=== PATIENT | male | born 1980 | race Caucasian/White ===

== ENCOUNTER 2017-01-23 11:25 | Emergency (ER) | payer BC, OTHER ==
[~2017-01-23] VITALS: Ht 182.9 cm; Wt 77.0 kg
[2017-01-23 11:26] VITALS: BP 111/78; PULSE 90; RESP 13; TEMP 97.6; O2SAT 97
--- NOTE | 2017-01-23 11:36 | PD ---
Physical Exam Time Seen by Provider: 11:30 Narrative 36-year-old male presents emergency Department with complaint of suicidal thoughts times one month. Instructed in with depression for about 2 months. Denies current plan, says he just has random thoughts. Says he doesn't really want to kill himself he just would like to , such as he wishes a car would hit him and kill him. Denies homicidal ideations. Denies auditory or visual hallucinations. Patient seen in triage. VS reviewed. Patient awaiting bed placement. Data Data Last Documented VS Vital Signs Date Time Temp Pulse Resp B/P (MAP) Pulse Ox O2 Delivery O2 Flow Rate FiO2 01/23/17 11:26 97.6 90 13 111/78 (89) 97 Orders Orders Complete Blood Count With Diff (01/23/17 11:36) Basic Metabolic Panel (Bmp) (01/23/17 11:36) Psych Screen (01/23/17 11:36) Alcohol (Ethanol) (01/23/17 11:36) Tylenol (Acetaminophen) (01/23/17 11:36) Salicylates (Aspirin) (01/23/17 11:36) Comprehensive Metabolic Panel (01/23/17 11:36) Drug Screen, Random Urine (01/23/17 11:36) MDM Supervised Visit with ELSY: Kirsten Castanon Jan 23, 2017 11:36
[2017-01-23] MEDS ORDERED: XANA1TAB2 PO (11:59)
[2017-01-23] MEDS ORDERED: SERO400T PO (11:59)
[2017-01-23] MEDS ORDERED: DULO1CAP PO (11:59)
[2017-01-23] MEDS ORDERED: XANA3TAB PO (11:59)
[2017-01-23] MEDS ORDERED: MELA5TAB15 PO (12:01)
[2017-01-23] MEDS ORDERED: MAGN400T2 PO (12:01)
[2017-01-23] MEDS ORDERED: probiotic (12:01)
[2017-01-23] MEDS ORDERED: [UNRECOGNIZED DRUG - OTHER] (12:01)
[2017-01-23 12:20] LABS: AUTOMATED NEUTROPHIL # 3.3 TH/MM3 (1.8-7.7); BASOPHIL # 0.1 TH/MM3 (0-0.2); EOSINOPHIL # 0.1 TH/MM3 (0-0.4); EOSINOPHIL % 1.3 % (0.0-4.0); HEMATOCRIT 43.8 % (39.0-51.0); HEMO FLAGS DIFF FINAL; LYMPH % 32.3 % (9.0-44.0); LYMPHOCYTE # 1.9 TH/MM3 (1.0-4.8); MEAN CELL VOLUME 87.6 FL (80.0-100.0); MEAN CORPUSCULAR HEMOGLOBIN 29.9 PG (27.0-34.0); MEAN CORPUSCULAR HGB CONC 34.1 % (32.0-36.0); MONO % 7.9 % (0.0-8.0); NEUT % 56.5 % (16.0-70.0); PLATELET COUNT 330 TH/MM3 (150-450); RED CELL DISTRIBUTION WIDTH 12.4 % (11.6-17.2); WHITE BLOOD COUNT 5.8 TH/MM3 (4.0-11.0)
--- NOTE | 2017-01-23 12:37 | PD ---
HPI Chief Complaint: Psychiatric Symptoms Time Seen by Provider: 12:10 Travel History International Travel<30 days: No Contact w/Intl Traveler<30days: No Traveled to known affect area: No History of Present Illness HPI 36-year-old male patient presents emergency department for evaluation of depression and suicidal ideation. Patient has history of bipolar and has been battling this bout of depression since October. 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 Patient has been following up with his psychiatric physician regularly. Patient states his psychiatrist was recently discussing inpatient treatment with him. Patient states he has been taking his medication as prescribed. Patient denies any homicidal ideations. Patient denies any auditory or visual hallucinations. Patient states he has battled depression in the past but feels this is the worst his depression has ever been. Patient states he would never kill himself because of his christian but hopes he attempted by a car or something happens to end his life. Patient does not have a plan to end his life at this time. Patient denies any alcohol or drug abuse. Patient complains of constipation related to his Xanax. Patient has seen his primary care physician regarding the constipation. Patient had x-rays earlier this month to rule out any obstruction. Patient has been going to colonics treatment to help regulate his bowel movements. Patient's last treatment was on Thursday and his last bowel movement was on Thursday. On physical exam the abdomen is not distended, nontender and soft. Bowel sounds are active in all 4 quadrants. Patient denies any other physiological symptoms. PFSH Past Medical History Bipolar Disorder: Yes Anxiety: Yes Depression: Yes Past Surgical History Oral Surgery: Yes Social History Alcohol Use: Yes (social not since November) Tobacco Use: No Substance Use: No Allergies-Medications (Allergen,Severity, Reaction): Coded Allergies: No Known Allergies (Verified Allergy, Unknown, 01/23/17) Reported Meds & Prescriptions Reported Meds & Active Scripts Active Reported [prebiotics] [probiotic] Magnesium Oxide 400 Mg Tab 400 Mg PO DIRECTED Melatonin 5 Mg Tab 5 Mg PO HS Xanax Xr 24 HR (Alprazolam) 3 Mg Tab 3 Mg PO HS Take tablet intact, preferably in the morning. Xanax (Alprazolam) 1 Mg Tab 1 Mg PO Q6H PRN Seroquel (Quetiapine Fumarate) 400 Mg Tab 600 Mg PO HS Duloxetine DR (Duloxetine HCl) 20 Mg Capdr 20 Mg PO DAILY Review of Systems Except as stated in HPI: all other systems reviewed are Neg Physical Exam Narrative GENERAL: Well-nourished well-developed 36-year-old male patient in no acute distress SKIN: Focused skin assessment warm/dry. HEAD: Atraumatic. Normocephalic. EYES: Pupils equal and round. No scleral icterus. No injection or drainage. ENT: No nasal bleeding or discharge. Mucous membranes pink and moist. NECK: Trachea midline. No JVD. CARDIOVASCULAR: Regular rate and rhythm. No murmur appreciated. RESPIRATORY: No accessory muscle use. Clear to auscultation. Breath sounds equal bilaterally. GASTROINTESTINAL: Abdomen soft, non-tender, nondistended. Hepatic and splenic margins not palpable. MUSCULOSKELETAL: No obvious deformities. No clubbing. No cyanosis. No edema. NEUROLOGICAL: Awake and alert. No obvious cranial nerve deficits. Motor grossly within normal limits. Normal speech. PSYCHIATRIC: Depressed mood and affect; insight and judgment normal. Data Data Last Documented VS Vital Signs Date Time Temp Pulse Resp B/P (MAP) Pulse Ox O2 Delivery O2 Flow Rate FiO2 01/23/17 17:52 80 18 121/68 (85) 100 Room Air 01/23/17 11:26 97.6 Orders Orders Complete Blood Count With Diff (01/23/17 11:36) Psych Screen (01/23/17 11:36) Alcohol (Ethanol) (01/23/17 11:36) Tylenol (Acetaminophen) (01/23/17 11:36) Salicylates (Aspirin) (01/23/17 11:36) Drug Screen, Random Urine (01/23/17 11:36) Comprehensive Metabolic Panel (01/23/17 12:37) Diet Regular Basic (01/23/17 Dinner) Labs Laboratory Tests Test 01/23/17 11:40 01/23/17 12:50 White Blood Count 5.8 TH/MM3 Red Blood Count 5.00 MIL/MM3 Hemoglobin 14.9 GM/DL Hematocrit 43.8 % Mean Corpuscular Volume 87.6 FL Mean Corpuscular Hemoglobin 29.9 PG Mean Corpuscular Hemoglobin Concent 34.1 % Red Cell Distribution Width 12.4 % Platelet Count 330 TH/MM3 Mean Platelet Volume 7.2 FL Neutrophils (%) (Auto) 56.5 % Lymphocytes (%) (Auto) 32.3 % Monocytes (%) (Auto) 7.9 % Eosinophils (%) (Auto) 1.3 % Basophils (%) (Auto) 2.0 % Neutrophils # (Auto) 3.3 TH/MM3 Lymphocytes # (Auto) 1.9 TH/MM3 Monocytes # (Auto) 0.5 TH/MM3 Eosinophils # (Auto) 0.1 TH/MM3 Basophils # (Auto) 0.1 TH/MM3 CBC Comment DIFF FINAL Differential Comment Blood Urea Nitrogen 12 MG/DL Creatinine 1.21 MG/DL Random Glucose 72 MG/DL Total Protein 7.8 GM/DL Albumin 4.5 GM/DL Calcium Level 9.2 MG/DL Alkaline Phosphatase 88 U/L Aspartate Amino Transf (AST/SGOT) 16 U/L Alanine Aminotransferase (ALT/SGPT) 29 U/L Total Bilirubin 0.4 MG/DL Sodium Level 138 MEQ/L Potassium Level 4.1 MEQ/L Chloride Level 100 MEQ/L Carbon Dioxide Level 32.7 MEQ/L Anion Gap 5 MEQ/L Estimat Glomerular Filtration Rate 68 ML/MIN Salicylates Level LESS THAN 1.7 MG/DL Acetaminophen Level LESS THAN 2.0 MCG/ML Ethyl Alcohol Level LESS THAN 3 MG/DL Urine Opiates Screen NEG Urine Barbiturates Screen NEG Urine Amphetamines Screen NEG Urine Benzodiazepines Screen POS Urine Cocaine Screen NEG Urine Cannabinoids Screen NEG MDM Medical Decision Making Medical Screen Exam Complete: Yes Emergency Medical Condition: Yes Medical Record Reviewed: Yes Differential Diagnosis Differential diagnosis does include but are not limited to depression, suicidal ideation, personality disorder, anxiety disorder, bipolar Narrative Course 36-year-old male patient presents the emergency department for evaluation of depression and suicidal ideation. Patient denies any homicidal ideation. Patient denies any alcohol or drug abuse. Patient denies any auditory or visual hallucinations. CBC, CMP, drug screen, alcohol level, Tylenol level, salicylate level and psych screen ordered and pending. CBC shows no acute abnormality CMP shows no acute abnormality Alcohol level is less than 3 Tylenol level is less than 2 Salicylate is less than 1.7 Psych Screen ordered and pending Patient is cleared medically and awaiting psych screen for evaluation and disposition. RN from psychiatric emergency department called with update from Dr. Freeman stating patient is safe for discharge. Patient told RN that he would like to go home tonight. He stated that he was not going to harm himself. Patient recently started Cymbalta last Thursday. Patient instructed that the therapeutic onset may take several weeks. Patient is aware and is planning on following up with the psychiatrist. Patient has an appointment to follow up with his psychiatrist next Thursday. Patient will be discharged home with strict instructions to return to the emergency department with any worsening thoughts of self-harm or new emergent conditions. Diagnosis Primary Impression: Depression Qualified Codes: F32.9 - Major depressive disorder, single episode, unspecified Additional Impressions: Suicidal ideation Bipolar 2 disorder, major depressive episode Referrals: Psychiatrist Patient Instructions: Depression (ED), General Instructions, Suicide Prevention for Adults (DC) Additional Instructions: Follow-up with your psychiatrist next Thursday. Takes Cymbalta as prescribed. Return to the emergency department with any worsening thoughts of self-harm or any new emergent conditions. Disposition: DISCHARGE HOME Condition: Stable Noreen Espinal Jan 23, 2017 12:37
[2017-01-23 12:46] LABS: ACETAMINOPHEN LESS THAN 2.0 MCG/ML (10.0-30.0); ALCOHOL LESS THAN 3 MG/DL (0-5)
[2017-01-23 13:01] LABS: ALT (GPT) 29 U/L (12-78); ANION GAP 5 MEQ/L (5-15); AST (GOT) 16 U/L (15-37); BICARBONATE 32.7 MEQ/L (21.0-32.0); BLOOD UREA NITROGEN 12 MG/DL (7-18); CHLORIDE 100 MEQ/L (98-107); GLOMERULAR FILTRATION RATE 68 ML/MIN (>89); POTASSIUM 4.1 MEQ/L (3.5-5.1); SODIUM (NA) 138 MEQ/L (136-145)
[2017-01-23 13:03] LABS: ALKALINE PHOSPHATASE 88 U/L (45-117); TOTAL BILIRUBIN ADULT 0.4 MG/DL (0.2-1.0)
[2017-01-23 15:00] VITALS: BP 107/67; PULSE 64; RESP 17; O2SAT 99
[2017-01-23 16:43] VITALS: BP 107/67
[2017-01-23 17:52] VITALS: BP 121/68; PULSE 80; RESP 18; O2SAT 100
== END 2017-01-23 19:45 | disposition home or self-care (01) ==
LOC: NEPD 11:25 → NEPJ 19:45
DX: F31.81 Bipolar II disorder (principal); Z79.899 Other long term (current) drug therapy
CPT/HCPCS: 80053; 80307; 85025; 99284